=== PATIENT | female | born 1960 | race African-American/Black ===

== ENCOUNTER 2016-06-05 16:28 | Emergency (ER) | payer MEDICARE, MEDICAID ==
[~2016-06-05] VITALS: Ht 162.6 cm; Wt 110.0 kg
[~2016-06-05 16:28] MED LIST: COGENTIN; [UNRECOGNIZED DRUG - OTHER]
[2016-06-05] MEDS ORDERED: BACITRACIN ZINC OINT UDPKT TOP ONE (18:15)
[2016-06-05] MEDS ORDERED: LIDOCAINE HCL 1% 20ML VIAL (Pyxis) INJ INFIL ONE (18:15)
[2016-06-05 18:44] VITALS: BP 164/81
== END 2016-06-05 18:45 | disposition home or self-care (01) ==
LOC: ER 17:41
DX: L02.611 Cutaneous abscess of right foot (principal); B35.3 Tinea pedis; Z88.6 Allergy status to analgesic agent
CPT/HCPCS: 10060; 99283; J3490

== ENCOUNTER 2018-02-20 22:28 | Emergency (ER) | payer MEDICARE, MEDICAID ==
[~2018-02-20] VITALS: Ht 162.6 cm; Wt 107.0 kg
[2018-02-21] MEDS ORDERED: IBUPROFEN 600MG TABLET PO ONE (00:30)
[2018-02-21] MEDS ORDERED: AMLODIPINE 10MG TABLET PO ONE (01:00)
[2018-02-21] MEDS ORDERED: CLONIDINE 0.2MG TABLET PO ONE (03:15)
[2018-02-21 03:29] VITALS: BP 183/96
== END 2018-02-21 03:30 | disposition home or self-care (01) ==
LOC: ER 23:32
DX: M54.9 Dorsalgia, unspecified (principal); M79.651 Pain in right thigh; F32.9 Major depressive disorder, single episode, unspecified; Z88.6 Allergy status to analgesic agent
CPT/HCPCS: 93971; 99284

== ENCOUNTER 2023-07-14 16:28 | Emergency (ER) | payer MEDICARE, MEDICAID ==
[~2023-07-14] VITALS: Ht 165.1 cm; Wt 79.0 kg
[2023-07-14 16:32] VITALS: BP 154/72; PULSE 102; RESP 18; TEMP 98.2; O2SAT 96
== END 2023-07-14 19:08 | disposition home or self-care (01) ==
LOC: ER 16:28
DX: K08.89 Other specified disorders of teeth and supporting structures (principal); F32.9 Major depressive disorder, single episode, unspecified
CPT/HCPCS: 99283

== ENCOUNTER 2023-11-12 17:31 | Emergency (ER) | payer MEDICARE, MEDICAID ==
[~2023-11-12] VITALS: Ht 170.2 cm; Wt 85.0 kg
[2023-11-12 17:44] VITALS: O2SAT 98
[2023-11-12 18:43] LABS: BASOPHILS % 0.9 % (0.0-2.0); HEMATOCRIT. 35.9 % (36.0-48.0); HEMOGLOBIN. 11.6 g/dL (12.0-16.0); LYMPHOCYTES % 38.3 % (20.0-50.0); MEAN CORPUSCULAR HEMOGLOBIN 26.6 pg (28.0-32.0); MEAN CORPUSCULAR HGB CONC 32.4 g/dL (31.0-37.0); MEAN PLATELET VOLUME 8.8 fl (7.4-10.4); MONOCYTES % 10.2 % (2.0-8.0); NEUTROPHILS % 47.6 % (40.0-76.0); PLATELET 247 x1000/uL (130-400); RED BLOOD CELL COUNT 4.38 mill/uL (4.2-5.4); RED CELL DISTRIBUTION WIDTH 17.2 % (11.6-14.6); WHITE BLOOD COUNT 8.2 x1000/uL (4.5-11.0)
[2023-11-12 18:52] LABS: CHLORIDE 108 mEq/L (98-107); POTASSIUM 4.3 mEq/L (3.5-5.1); SODIUM 141 mEq/L (136-145)
[2023-11-12 18:53] LABS: CARBON DIOXIDE 28 mEq/L (21-32)
[2023-11-12 18:54] LABS: CALCIUM 9.9 mg/dL (8.7-10.4)
[2023-11-12 18:58] LABS: GLUCOSE 90 mg/dL (70-105)
[2023-11-12 18:59] LABS: TROPONIN I HIGH SENSITIVITY 11 ng/L (3.0-34); UREA NITROGEN BLOOD 24 mg/dL (9-23)
[2023-11-12 19:00] LABS: ACETAMINOPHEN < 2 ug/mL (10-30); AMMONIA < 17 uMol/L (<32)
[2023-11-12 19:01] LABS: ETHANOL BLOOD < 10 mg/dL (<10)
[2023-11-12] MEDS: LORAZEPAM 1MG TABLET PO ONE (19:13)
[2023-11-12] MEDS: BENZTROPINE MESYLATE 1MG TABLET PO ONE (19:23)
[2023-11-12 21:33] VITALS: BP 126/81; PULSE 84; RESP 20; TEMP 36.66960; O2SAT 98
== END 2023-11-12 21:49 | disposition home or self-care (01) ==
LOC: ER 17:31
DX: F41.9 Anxiety disorder, unspecified (principal); F32.A Depression, unspecified; Z88.6 Allergy status to analgesic agent
CPT/HCPCS: 36415; 80048; 80307; 80320; 80329; 82140; 84484; 85025; 93005; 99284; G0480

== ENCOUNTER 2023-11-26 23:49 | Emergency (ER) | payer MEDICARE, MEDICAID ==
[~2023-11-26] VITALS: Ht 162.6 cm; Wt 100.0 kg
[2023-11-26 23:54] VITALS: BP 168/77; PULSE 85; RESP 16; TEMP 98; O2SAT 100
[2023-11-27 01:35] LABS: BASOPHILS % 1.1 % (0.0-2.0); EOSINOPHILS % 5.7 % (0.0-5.0); HEMATOCRIT. 35.1 % (36.0-48.0); HEMOGLOBIN. 11.3 g/dL (12.0-16.0); LYMPHOCYTES % 40.2 % (20.0-50.0); MEAN CORPUSCULAR HEMOGLOBIN 26.4 pg (28.0-32.0); MEAN CORPUSCULAR HGB CONC 32.1 g/dL (31.0-37.0); MEAN CORPUSCULAR VOLUME 82.3 fL (81.0-99.0); MONOCYTES % 8.2 % (2.0-8.0); NEUTROPHILS % 44.8 % (40.0-76.0); PLATELET 219 x1000/uL (130-400); RED BLOOD CELL COUNT 4.26 mill/uL (4.2-5.4); RED CELL DISTRIBUTION WIDTH 17.5 % (11.6-14.6); WHITE BLOOD COUNT 6.1 x1000/uL (4.5-11.0)
[2023-11-27 01:39] LABS: CHLORIDE 110 mEq/L (98-107); POTASSIUM 3.9 mEq/L (3.5-5.1); SODIUM 142 mEq/L (136-145)
[2023-11-27 01:40] LABS: CALCIUM 9.6 mg/dL (8.7-10.4); CARBON DIOXIDE 27 mEq/L (21-32)
[2023-11-27 01:45] LABS: CREATININE 0.8 mg/dL (0.6-1.0); GLUCOSE 89 mg/dL (70-105); UREA NITROGEN BLOOD 15 mg/dL (9-23)
[2023-11-27 01:47] LABS: ALANINE AMINOTRANSFERASE 10 IU/L (10-49); ALBUMIN 4.5 g/dL (3.2-4.8); ASPARTATE AMINOTRANSFERASE 15 IU/L (<34); BILIRUBIN TOTAL 0.6 mg/dL (0.1-1.0); PROTEIN TOTAL 7.7 g/dL (6.0-8.3)
[2023-11-27] MEDS: MAGNESIUM/ALUMINUM HYDROXIDE/SIMETHICONE 30ML UDC PO ONE (03:25)
== END 2023-11-27 05:02 | disposition home or self-care (01) ==
LOC: ER 11-27 00:02
DX: K21.9 Gastro-esophageal reflux disease without esophagitis (principal); F41.9 Anxiety disorder, unspecified; F32.A Depression, unspecified; Z88.6 Allergy status to analgesic agent; Z86.59 Personal history of other mental and behavioral disorders
CPT/HCPCS: 36415; 70360; 71045; 80053; 85025; 87070; 87430; 99284

== ENCOUNTER 2024-06-15 19:34 | Emergency (ER) | payer MEDICARE, MEDICAID ==
[~2024-06-15] VITALS: Ht 162.6 cm; Wt 106.9 kg
[2024-06-15 19:40] VITALS: BP 178/108; PULSE 86; RESP 18; TEMP 36.9; O2SAT 100; O2SAT 99
[2024-06-15] MEDS: KETOROLAC 30MG/ML VIAL IM ONE (21:13)
[2024-06-15 23:07] LABS: INFLUENZA TYPE A Presumptive Negative (Pres. Neg.)
[2024-06-15 23:08] LABS: INFLUENZA TYPE B Presumptive Negative (Pres. Neg.)
[2024-06-15] MEDS ORDERED: IBUP-2028 MT (23:19)
[2024-06-15] MEDS ORDERED: CETI10CA2 MT (23:21)
[2024-06-15] MEDS ORDERED: FLUT9.9S BOTHNSTRLS (23:23)
== END 2024-06-15 23:34 | disposition home or self-care (01) ==
LOC: ER 19:34
DX: M79.10 Myalgia, unspecified site (principal); R09.81 Nasal congestion; F20.9 Schizophrenia, unspecified; F10.90 Alcohol use, unspecified, uncomplicated; F31.9 Bipolar disorder, unspecified; Y90.9 Presence of alcohol in blood, level not specified
CPT/HCPCS: 99284; 71045; 87804 ×2; 96372; J1885

== ENCOUNTER 2024-09-10 02:41 | Emergency (ER) | payer MEDICARE, MEDICAID ==
[~2024-09-10] VITALS: Ht 172.7 cm; Wt 91.0 kg
[~2024-09-10 02:41] MED LIST changes: -COGENTIN; +FLUT9.9S BOTHNSTRLS; +IBUP-2028 MT; -[UNRECOGNIZED DRUG - OTHER]
[2024-09-10 02:57] VITALS: O2SAT 97
[2024-09-10] MEDS: CYCLOBENZAPRINE 10MG TABLET PO ONE (04:18)
[2024-09-10] MEDS: KETOROLAC 30MG/ML VIAL IM ONE (04:18)
[2024-09-10] MEDS: LIDOCAINE 5% PATCH TOP SCH (04:22)
[2024-09-10 05:06] VITALS: TEMP 36.4
[2024-09-10] MEDS ORDERED: KETO10TA2 MT (05:36)
[2024-09-10] MEDS ORDERED: CYCL10TA21 MT (05:36)
[2024-09-10] MEDS ORDERED: LIDO700A30 TP (05:36)
[2024-09-10 06:00] VITALS: BP 183/92; PULSE 75; RESP 16; O2SAT 100
== END 2024-09-10 06:12 | disposition home or self-care (01) ==
LOC: ER 02:41
DX: M25.562 Pain in left knee (principal); M54.50 Low back pain, unspecified; F32.A Depression, unspecified; F20.9 Schizophrenia, unspecified; Z79.899 Other long term (current) drug therapy; Z88.8 Allergy status to other drugs, medicaments and biological substances
CPT/HCPCS: 99283; 73562; 96372; J1885